=== PATIENT | female | born 1990 | race Caucasian/White ===

== ENCOUNTER → 2020-06-13 | Outpatient (CLI) | payer MEDICARE, OTHER ==
[2020-06-13 10:27] LABS: GLUCOSE,CSF 44 mg/dL (50-80); TOTAL PROTEIN,CSF 45 mg/dL (20-45)
[2020-06-13 10:57] LABS: WBC (AUTOMATED 54 10^3 (0-5)
[2020-06-13 10:58] LABS: WBC (AUTOMATED 44 10^3 (0-5)
[2020-06-17 10:13] LABS: MYELIN BASIC PROTEIN, CSF 5.2 ng/mL (0.0-3.7)
[2020-06-17 14:13] LABS: CSF IGG INDEX 0.7 (0.0-0.7); IMMUNOGLOBULIN G, QN, SERUM 946 mg/dL (586-1602)
== END | disposition home or self-care (01) ==
LOC: RAD 07:47
PROVIDERS: Psychiatry & Neurology Neurology
PROC: 009U3ZZ Drainage of Spinal Canal, Percutaneous Approach (ICD-10-PCS; principal; 2020-06-13)
PROC: 009U3ZX Drainage of Spinal Canal, Percutaneous Approach, Diagnostic (ICD-10-PCS; 2020-06-13)
DX: G93.2 Benign intracranial hypertension (principal)
CPT/HCPCS: 70450; 82040; 82784; 82945; 83873; 83916; 84157; 89051